=== PATIENT | male | born 1950 | race Caucasian/White ===

== ENCOUNTER 2017-11-02 10:14 | Inpatient (IN) | payer MEDICARE, OTHER ==
[~2017-11-02] VITALS: Ht 165.1 cm; Wt 86.2 kg
[2017-11-02 10:47] LABS: BASOPHILS % (AUTO) 0.4 % (0.0-2.0); HEMATOCRIT 47 % (39-51); HEMOGLOBIN 15.4 g/dL (13.5-17.5); LYMPHOCYTES # (AUTO) 1.2 /CMM (0.8-4.8); LYMPHOCYTES % (AUTO) 17.9 % (20.0-44.0); MEAN CORPUSCULAR HEMOGLOBIN 30 PG (26.0-33.0); MEAN CORPUSCULAR HGB CONC 33 g/dl (31.0-36.0); MEAN CORPUSCULAR VOLUME 91 fL (80-96); MONOCYTES # (AUTO) 0.6 /CMM (0.1-1.30); MONOCYTES % (AUTO) 9.5 % (2.0-12.0); NEUTROPHILS # (AUTO) 4.5 /CMM (1.8-8.9); NEUTROPHILS % (AUTO) 70.2 % (43.0-81.0); PLATELET COUNT (AUTO) 245 /CMM (150-450); RDW COEFFICIENT OF VARIATION 14.1 (11.5-15.0); RED BLOOD CELL COUNT(AUTO) 5.15 MIL/uL (4.5-6.0); WHITE BLOOD COUNT (AUTO) 6.4 K/uL (4.3-11.0)
[2017-11-02 10:58] LABS: ALANINE AMINOTRANSFERASE 20 U/L (12-78); ALBUMIN 3.3 g/dL (3.4-5.0); ALKALINE PHOSPHATASE 67 U/L (46-116); ASPARTATE AMINOTRANSFERASE 14 U/L (15-37); BILIRUBIN,DIRECT 0.2 mg/dL (0.0-0.2); BILIRUBIN,TOTAL 0.7 mg/dL (0.2-1.0); CALCIUM, SERUM 9.2 mg/dL (8.5-10.1); CARBON DIOXIDE 29 mmol/L (21-32); CHLORIDE 100 mmol/L (98-107); CREATININE 0.9 mg/dL (0.6-1.3); POTASSIUM 4.6 mmol/L (3.5-5.1); SODIUM SERUM 132 mmol/L (136-145); UREA NITROGEN, BLOOD 11 mg/dL (7-18)
[2017-11-02 11:01] LABS: GLUCOSE 352 mg/dL (74-106); SALICYLATE 1.4 mg/dL (2.8-20.0)
[2017-11-02 11:02] LABS: ALCOHOL, BLOOD 0 mg/dL (0-0)
[2017-11-02 11:03] LABS: ACETAMINOPHEN < 0 ug/ml (10-30)
[2017-11-02] MEDS ORDERED: INSULIN REGULAR, HUMAN 100 UNIT/ML 10 ML VIAL ONE (11:22)
[2017-11-02] MEDS ORDERED: INSULIN REGULAR, HUMAN 100 UNIT/ML 10 ML VIAL SQ ONE (11:30)
[2017-11-02] MEDS ORDERED: MAG HYDROX/AL HYDROX/SIMETH 30 ML UDC PO PRN (12:30)
[2017-11-02] MEDS ORDERED: clonazePAM 0.5 MG TABLET PO PRN (12:30)
[2017-11-02] MEDS ORDERED: ACETAMINOPHEN 325 MG TABLET PO PRN (12:30)
[2017-11-02] MEDS ORDERED: MAGNESIUM HYDROXIDE 30 ML UDC PO PRN (12:30)
[2017-11-02 13:08] LABS: APPEARANCE,URINE Clear (CLEAR); BILIRUBIN,URINE Negative (NEGATIVE); BLOOD, URINE Negative Ery/uL (NEGATIVE); COLOR,URINE Yellow (YELLOW); KETONES,URINE 15 (NEGATIVE); LEUKOCYTE ESTERASE ,URINE Negative (NEGATIVE); NITRITE, URINE Negative (NEGATIVE); PROTEIN,URINE Negative (NEGATIVE); UGLUCOSE >=1000 mg/dL (NEGATIVE)
[2017-11-02] MEDS ORDERED: DEXTROSE 50%-WATER 50 ML DISP.SYRIN IV PRN (14:00)
[2017-11-02 14:17] LABS: BACTERIA,URINE None seen /HPF (None Seen); RBC,URINE 0-2 /HPF (0-2); SQUAMOUS EPITHELIAL CELL,UR Few /HPF (None Seen); WBC,URINE 0-3 /HPF (0-3)
[2017-11-02 16:00] VITALS: BP 101/67
[2017-11-02] MEDS: risperiDONE 1 MG TABLET PO SCH (17:55)
[2017-11-02] MEDS: INSULIN REGULAR, HUMAN 100 UNIT/ML 3 ML VIAL SQ PRN (18:21)
[2017-11-02] MEDS: BLOOD SUGAR DIAGNOSTIC 1 EACH STRIP VI SCH ×2 (18:24→21:42)
[2017-11-02 20:24] VITALS: BP 95/60
[2017-11-02] MEDS: MIRTAZAPINE 15 MG TABLET PO SCH (21:36)
[2017-11-02] MEDS: *INSULIN REGULAR(HUMULIN R)HUM 100 UNIT/ML VIAL SQ PRN (21:43)
[2017-11-03 07:14] LABS: CHOLESTEROL 195 mg/dL (<200); HDL CHOLESTEROL 36 mg/dL (40-60); LDL 140 mg/dL (0-99); TRIGLYCERIDES 92 mg/dL (30-150)
[2017-11-03 07:16] LABS: ALBUMIN 3.1 g/dL (3.4-5.0); BILIRUBIN,TOTAL 0.6 mg/dL (0.2-1.0); CALCIUM, SERUM 8.6 mg/dL (8.5-10.1); CREATININE 0.8 mg/dL (0.6-1.3); POTASSIUM 3.7 mmol/L (3.5-5.1); TOTAL PROTEIN, SERUM 6.5 g/dL (6.4-8.2)
[2017-11-03 07:17] LABS: THYROID STIMULATING HORMONE 0.417 uIU/mL (0.358-3.74)
[2017-11-03] MEDS: BLOOD SUGAR DIAGNOSTIC 1 EACH STRIP VI SCH ×4 (07:39→21:52)
[2017-11-03] MEDS: INSULIN REGULAR, HUMAN 100 UNIT/ML 3 ML VIAL SQ PRN ×3 (07:40→17:17)
[2017-11-03 08:00] VITALS: BP 100/69
[2017-11-03] MEDS: risperiDONE 1 MG TABLET PO SCH ×2 (08:13→17:07)
[2017-11-03 16:00] VITALS: BP 111/75
[2017-11-03] MEDS: METFORMIN 500 MG TABLET PO SCH (17:07)
[2017-11-03 20:00] VITALS: BP 116/61
[2017-11-03] MEDS: MIRTAZAPINE 15 MG TABLET PO SCH (21:51)
[2017-11-03] MEDS: SIMVASTATIN 10 MG TABLET PO SCH (21:51)
[2017-11-03] MEDS: *INSULIN REGULAR(HUMULIN R)HUM 100 UNIT/ML VIAL SQ PRN (21:53)
[2017-11-04 08:00] VITALS: BP 107/75
[2017-11-04] MEDS: INSULIN REGULAR, HUMAN 100 UNIT/ML 3 ML VIAL SQ PRN ×3 (08:55→17:33)
[2017-11-04] MEDS: BLOOD SUGAR DIAGNOSTIC 1 EACH STRIP VI SCH ×4 (08:55→22:09)
[2017-11-04] MEDS: METFORMIN 500 MG TABLET PO SCH ×2 (08:55→16:48)
[2017-11-04] MEDS: risperiDONE 1 MG TABLET PO SCH ×2 (08:55→16:49)
[2017-11-04] MEDS: ASPIRIN EC 81 MG TABLET.DR PO SCH (10:24)
[2017-11-04 16:00] VITALS: BP 100/67
[2017-11-04 20:00] VITALS: BP 103/54
[2017-11-04] MEDS: MIRTAZAPINE 15 MG TABLET PO SCH (22:09)
[2017-11-04] MEDS: SIMVASTATIN 10 MG TABLET PO SCH (22:09)
[2017-11-04] MEDS: *INSULIN REGULAR(HUMULIN R)HUM 100 UNIT/ML VIAL SQ PRN (22:10)
[2017-11-04] MEDS: TEMAZEPAM 7.5 MG CAPSULE PO PRN (23:37)
[2017-11-05] MEDS: BLOOD SUGAR DIAGNOSTIC 1 EACH STRIP VI SCH ×4 (07:49→22:08)
[2017-11-05] MEDS: INSULIN REGULAR, HUMAN 100 UNIT/ML 3 ML VIAL SQ PRN ×3 (07:51→18:33)
[2017-11-05] MEDS: ASPIRIN EC 81 MG TABLET.DR PO SCH (07:54)
[2017-11-05] MEDS: METFORMIN 500 MG TABLET PO SCH ×2 (07:54→18:28)
[2017-11-05] MEDS: risperiDONE 1 MG TABLET PO SCH ×2 (07:54→18:28)
[2017-11-05 08:00] VITALS: BP 106/63
[2017-11-05 16:00] VITALS: BP 111/62
[2017-11-05 20:06] VITALS: BP 101/68
[2017-11-05] MEDS: *INSULIN REGULAR(HUMULIN R)HUM 100 UNIT/ML VIAL SQ PRN (22:13)
[2017-11-05] MEDS: SIMVASTATIN 10 MG TABLET PO SCH (22:13)
[2017-11-05] MEDS: MIRTAZAPINE 15 MG TABLET PO SCH (23:04)
[2017-11-06] MEDS: BLOOD SUGAR DIAGNOSTIC 1 EACH STRIP VI SCH ×4 (07:53→22:54)
[2017-11-06 08:00] VITALS: BP 91/64
[2017-11-06] MEDS: ASPIRIN EC 81 MG TABLET.DR PO SCH (08:09)
[2017-11-06] MEDS: risperiDONE 1 MG TABLET PO SCH ×2 (08:10→16:38)
[2017-11-06] MEDS: METFORMIN 500 MG TABLET PO SCH ×2 (08:10→16:37)
[2017-11-06] MEDS: INSULIN REGULAR, HUMAN 100 UNIT/ML 3 ML VIAL SQ PRN ×3 (08:13→17:57)
[2017-11-06 16:00] VITALS: BP 98/63
[2017-11-06 21:23] VITALS: BP_SYST 103; BP_SYST 104; BP_DIAS 66; BP_DIAS 73
[2017-11-06] MEDS: MIRTAZAPINE 15 MG TABLET PO SCH (21:46)
[2017-11-06] MEDS: SIMVASTATIN 10 MG TABLET PO SCH (21:47)
[2017-11-06] MEDS: TEMAZEPAM 7.5 MG CAPSULE PO PRN (21:47)
[2017-11-07] MEDS: BLOOD SUGAR DIAGNOSTIC 1 EACH STRIP VI SCH ×4 (07:30→21:49)
[2017-11-07 08:00] VITALS: BP 100/72
[2017-11-07] MEDS: risperiDONE 1 MG TABLET PO SCH ×2 (08:42→17:14)
[2017-11-07] MEDS: METFORMIN 500 MG TABLET PO SCH ×2 (08:42→17:13)
[2017-11-07] MEDS: ASPIRIN EC 81 MG TABLET.DR PO SCH (08:42)
[2017-11-07] MEDS: INSULIN REGULAR, HUMAN 100 UNIT/ML 3 ML VIAL SQ PRN ×2 (12:09→17:59)
[2017-11-07 16:00] VITALS: BP 130/68
[2017-11-07 20:00] VITALS: BP 132/83
[2017-11-07] MEDS: SIMVASTATIN 10 MG TABLET PO SCH (21:38)
[2017-11-07] MEDS: MIRTAZAPINE 15 MG TABLET PO SCH (21:38)
[2017-11-07] MEDS: TEMAZEPAM 7.5 MG CAPSULE PO PRN (21:39)
[2017-11-07] MEDS: *INSULIN REGULAR(HUMULIN R)HUM 100 UNIT/ML VIAL SQ PRN ×2 (21:41→21:46)
[2017-11-08] MEDS: BLOOD SUGAR DIAGNOSTIC 1 EACH STRIP VI SCH ×4 (06:23→21:50)
[2017-11-08] MEDS: INSULIN REGULAR, HUMAN 100 UNIT/ML 3 ML VIAL SQ PRN ×2 (06:35→18:06)
[2017-11-08 08:45] VITALS: BP 103/74
[2017-11-08] MEDS: ASPIRIN EC 81 MG TABLET.DR PO SCH (09:09)
[2017-11-08] MEDS: risperiDONE 1 MG TABLET PO SCH ×2 (09:09→18:03)
[2017-11-08] MEDS: METFORMIN 500 MG TABLET PO SCH ×2 (09:09→18:03)
[2017-11-08 20:00] VITALS: BP 99/56
[2017-11-08] MEDS: MIRTAZAPINE 15 MG TABLET PO SCH (21:46)
[2017-11-08] MEDS: SIMVASTATIN 10 MG TABLET PO SCH (21:46)
[2017-11-08] MEDS: *INSULIN REGULAR(HUMULIN R)HUM 100 UNIT/ML VIAL SQ PRN (21:51)
[2017-11-09] MEDS: BLOOD SUGAR DIAGNOSTIC 1 EACH STRIP VI SCH ×4 (06:30→21:03)
[2017-11-09] MEDS: INSULIN REGULAR, HUMAN 100 UNIT/ML 3 ML VIAL SQ PRN ×4 (06:31→21:06)
[2017-11-09] MEDS: risperiDONE 1 MG TABLET PO SCH ×2 (08:04→16:51)
[2017-11-09] MEDS: METFORMIN 500 MG TABLET PO SCH ×2 (08:04→16:53)
[2017-11-09] MEDS: ASPIRIN EC 81 MG TABLET.DR PO SCH (08:04)
[2017-11-09 09:00] VITALS: BP 100/59
[2017-11-09 16:29] VITALS: BP 100/73
[2017-11-09 20:00] VITALS: BP 111/66
[2017-11-09] MEDS: MIRTAZAPINE 15 MG TABLET PO SCH (21:08)
[2017-11-09] MEDS: SIMVASTATIN 10 MG TABLET PO SCH (21:09)
[2017-11-10 08:00] VITALS: BP 114/86
[2017-11-10] MEDS: BLOOD SUGAR DIAGNOSTIC 1 EACH STRIP VI SCH ×2 (08:33→13:21)
[2017-11-10] MEDS: METFORMIN 500 MG TABLET PO SCH (08:33)
[2017-11-10] MEDS: ASPIRIN EC 81 MG TABLET.DR PO SCH (08:33)
[2017-11-10] MEDS: risperiDONE 1 MG TABLET PO SCH (08:33)
[2017-11-10] MEDS: INSULIN REGULAR, HUMAN 100 UNIT/ML 3 ML VIAL SQ PRN ×2 (09:03→12:30)
== END 2017-11-10 14:45 | DRG 885 ==
LOC: ER 10:16 → GPS 11:32 → GPSOV2 11-07 20:32 → GPS 11-09 10:14
PROVIDERS: ADMIT Psychiatry & Neurology Psychiatry; ATTEND Family Medicine
DX: F33.3 Major depressive disorder, recurrent, severe with psychotic symptoms (principal); E11.65 Type 2 diabetes mellitus with hyperglycemia; I69.351 Hemiplegia and hemiparesis following cerebral infarction affecting right dominant side; R45.851 Suicidal ideations; Z79.84 Long term (current) use of oral hypoglycemic drugs; D17.39 Benign lipomatous neoplasm of skin and subcutaneous tissue of other sites
CPT/HCPCS: 36415; 80048-TC; 80053-TC; 80061-TC; 80076-TC; 80305; 81000-TC; 82962-TC; 84439-TC; 84443-TC; 85025-TC; A4606; G0480; J1815; Z7610